=== PATIENT | female | born 1985 | race Caucasian/White ===

== ENCOUNTER 2025-05-08 09:41 | Day surgery (SDC) | payer OTHER ==
[~2025-05-08] VITALS: Ht 157.5 cm; Wt 86.2 kg
[~2025-05-08 09:41] MED LIST: LIDOCAINE 2% 100 MG/5 ML SDV (FOR ANES.) As Ordered ONE; ONDANSETRON 4MG/2ML VIAL As Ordered ONE; OXYMETAZOLINE 0.05% NASAL SPRAY As Ordered ONE; ROCURONIUM BROMIDE 50MG/5ML VIAL As Ordered ONE; SUGAMMADEX SODIUM 500 MG/5 ML VIAL As Ordered ONE; dexAMETHasone 4 MG/ML 1 ML VIAL As Ordered ONE; dexAMETHasone 4 MG/ML 1 ML VIAL IV ONE
[2025-05-08] MEDS ORDERED: MIDAZOLAM INJ 2 MG/2 ML VIAL As Ordered ONE (10:57)
[2025-05-08] MEDS: AMPICILLIN SOD/SULBACTAM SOD 3 GM in DEXTROSE 5% (D5W) MINI-BAG PLU 100 ML IV ONE (11:39)
[2025-05-08] MEDS ORDERED: ACETAMINOPHEN 1000MG/100ML IV BAG As Ordered ONE (11:44)
[2025-05-08] MEDS: CHLORHEXIDINE GLUCONATE 0.12% 15 ML UDC As Ordered ONE (11:47)
[2025-05-08] MEDS ORDERED: NALOXONE INJ 0.4 MG/1 ML VIAL As Ordered ONE (12:40)
[2025-05-08] MEDS ORDERED: HYDROMORPHONE HCL 0.5 MG/0.5 ML SYRINGE IV PRN (12:55)
[2025-05-08] MEDS ORDERED: ONDANSETRON 4MG/2ML VIAL IV PRN (12:55)
[2025-05-08 14:00] VITALS: BP 130/80; TEMP 97; O2SAT 95
== END 2025-05-08 14:31 | disposition home or self-care (01) ==
LOC: M SDC 09:41
PROVIDERS: ATTEND Dentist
DX: K02.9 Dental caries, unspecified (principal); F17.210 Nicotine dependence, cigarettes, uncomplicated; F12.10 Cannabis abuse, uncomplicated; F32.A Depression, unspecified; I10 Essential (primary) hypertension; K21.9 Gastro-esophageal reflux disease without esophagitis; Z88.5 Allergy status to narcotic agent
CPT/HCPCS: 88300; D7140; D7210; D9223; J0131; J0295; J0666; J1100; J2250; J2312; J2405; J3010